=== PATIENT | female | born 1995 | race Caucasian/White ===

== ENCOUNTER 2017-05-23 12:30 | Emergency (ER) | payer MEDICAID ==
[2017-05-23 13:07] VITALS: BP 122/61; PULSE 90
--- NOTE | 2017-05-23 13:13 | PD ---
HPI Chief Complaint back pain Travel History International Travel<30 Days: No Contact w/Intl Traveler<30Days: No Known Affected Area: No History of Present Illness HPI 21-year-old , IUP at 26.4 care uncomplicated per patient report The patient presents complaining of bilateral lower back pain that radiates to her buttocks. The right side is worse than the left side. She reports this onset last night. She awoke from sleep at 3 AM and took Tylenol with no improvement. She reports that she will get 5 AM and took a shower with no improvement. She also tried ice pack with no improvement. She reports the pain is achy and dull. She reports occasional nausea. She denies any fever, chills, vomiting. She denies any urinary complaints like dysuria, urinary odor , or other complaints. Weeks Gestation: 28 Para: 2 : 3 Miscarriage: 0 : 0 History Past Medical History Medical History: Denies Significant Hx Obstetric History Obstetric History 2 Past Surgical History Surgical History: No Previous Surgery Family History Family History: Negative Social History Alcohol Use: No Tobacco Use: No Substance Abuse: No Allergies-Medications (Allergen,Severity, Reaction): Coded Allergies: amoxicillin (Unverified Allergy, Mild, RASH, 10/25/16) Home Meds No Active Prescriptions or Reported Meds Review of Systems Except as stated in HPI: all other systems reviewed are Neg Gastrointestinal: Nausea Physical Exam Narrative GENERAL: Well-nourished, well-developed patient. SKIN: Warm and dry. HEAD: Normocephalic and atraumatic. EYES: No scleral icterus. No injection or drainage. ENT: No nasal drainage noted. Mucous membranes pink. Airway patent. NECK: Supple, trachea midline. No JVD. CARDIOVASCULAR: Regular rate and rhythm without murmurs, gallops, or rubs. RESPIRATORY: Breath sounds equal bilaterally. No accessory muscle use. BREASTS: Deferred ABDOMEN/GI: Abdomen soft, non-tender, bowel sounds present, no rebound, no guarding Gravid GENITOURINARY: Deferred FHT's: heart tones are in the 130s with moderate long-term variability, good accelerations, no decelerations noted. This reassuring heart rate tracing is appropriate for gestational age. No contractions are noted. EXTREMITIES: No cyanosis or edema. BACK: Nontender without obvious deformity. No CVA tenderness. NEUROLOGICAL: Awake and alert. Motor and sensory grossly within normal limits. Five out of 5 muscle strength in all muscle groups. Normal speech. Musculoskeletal: Grossly normal range of motion, gait, muscle strength. No spinal or paraspinal tenderness. Lower lumbar muscular tenderness. Psychiatric: Grossly normal memory and affect Data Data Orders Orders Vital Signs (Adult) .ON ADMISSION (05/23/17 12:45) ^ Labor Status (05/23/17 12:45) Urinalysis - C+S If Indicated (05/23/17 12:45) ^ Non Stress Test (05/23/17 12:45) Acetaminophen (Tylenol) (05/23/17 13:15) MDM Plan Assessment/plan: 1. IUP at 26.4 2. Lower back pain: The patient was given thousand grams of Tylenol and reports her back pain has resolved. There is no evidence of pyelonephritis, there is no spinal/paraspinal tenderness. Likely lower back pain is musculoskeletal etiology and related to . Comfort measures were discussed. 3. Urinalysis: Negative 4. well-being: Reassuring testing with heart tones that are reassuring and appropriate for gestational age. kick counts daily. 5. No evidence of labor: Strict labor precautions 6. Follow-up with primary OB in 2-3 days or sooner if needed Diagnosis Diagnosis: Primary Impression: 26 weeks gestation of Additional Impressions: False labor before 37 completed weeks of gestation during in third trimester, antepartum Musculoskeletal back pain Disposition: 01 DISCHARGE HOME Scripts No Active Prescriptions or Reported Guerita Kennedy MD May 23, 2017 13:13
[2017-05-23 13:15] VITALS: TEMP 98.5
[2017-05-23] MEDS ORDERED: ACETAMINOPHEN 500 MG CPLT PO ONE (13:15)
[2017-05-23 13:29] LABS: AMORPHOUS SEDIMENT, URINE FEW; BACTERIA, URINE OCC /hpf; BILIRUBIN, URINE NEG (NEG); BLOOD, URINE NEG (NEG); GLUCOSE,URINE NEG (NEG); KETONE, URINE NEG (NEG); MUCUS URINE FEW /lpf (OCC); NITRITE,URINE NEG (NEG); PH, URINE 7.5 (5.0-8.5); SQUAMOUS EPITHELIAL CELL URINE 4 /hpf (0-5); URINE COLOR YELLOW (YELLW/STRAW); URINE LEUKOCYTE ESTERASE NEG (NEG)
== END 2017-05-23 14:28 | disposition home or self-care (01) ==
LOC: HOBED 12:30
DX: O47.02 False labor before 37 completed weeks of gestation, second trimester (principal); M54.5 Low back pain; Z3A.26 26 weeks gestation of pregnancy
CPT/HCPCS: 81001; 99283